=== PATIENT | male | born 1950 | race Caucasian/White ===

== ENCOUNTER 2017-05-08 21:32 | Emergency (ER) | payer BC ==
[2017-05-08 22:28] VITALS: BP 151/90
--- NOTE | 2017-05-08 22:53 | EDM.PDOC ---
ED HPI GENERAL MEDICAL PROBLEM - General Chief Complaint: Eye Problems Stated Complaint: POKED EYE WED AM Time Seen by Provider: 05/08/17 22:43 Source of Information: Reports: Patient History Limitations: Reports: No Limitations - History of Present Illness INITIAL COMMENTS - FREE TEXT/NARRATIVE: History of present illness: [66-year-old male presents with history of poking himself with a hair pick in the left eye yesterday. Continues to have irritation and some discharge. His vision is good though.] Review of systems: As per history of present illness and below otherwise all systems reviewed and negative. Past medical history: As per history of present illness and as reviewed below otherwise noncontributory. Surgical history: As per history of present illness and as reviewed below otherwise noncontributory. Social history: No reported history of drug or alcohol abuse. Family history: As per history of present illness and as reviewed below otherwise noncontributory. Physical exam: HEENT: Atraumatic, normocephalic, pupils reactive, negative for conjunctival pallor or scleral icterus, examination of the cornea under magnifying glass does reveal a corneal tear at the 12 o'clock position just at the junction of the limbus. This is about 2 cm across in his boxlike. The corneal membrane appears translucent and clean Lungs: Clear to auscultation Heart: S1S2, regular, Neuro: Awake, alert, oriented. Exam nonfocal. Diagnostics: [] Therapeutics: [] Impression: [Corneal abrasion] Plan: [Erythromycin ophthalmologic ointment is provided. If pain increases or vision diminishes he's to follow-up with optometry] Definitive disposition and diagnosis as appropriate pending reevaluation and review of above. - Related Data Allergies Allergy/AdvReac Type Severity Reaction Status Date / Time No Known Allergies Allergy Verified 05/08/17 22:26 Home Meds: Home Meds NK [No Known Home Meds] 05/08/17 [History] Past Medical History HEENT History: Reports: Cataract Cardiovascular History: Reports: None Respiratory History: Reports: None Gastrointestinal History: Reports: Cholelithiasis Neurological History: Reports: Concussion - Past Surgical History Cardiovascular Surgical History: Reports: None Respiratory Surgical History: Reports: None GI Surgical History: Reports: Cholecystectomy, Colonoscopy, Hernia, Inguinal Neurological Surgical History: Reports: C-Spine Social & Family History - Tobacco Use Smoking Status *Q: Never Smoker - Recreational Drug Use Recreational Drug Use: No ED ROS GENERAL - Review of Systems Review Of Systems: ROS reveals no pertinent complaints other than HPI. ED EXAM GENERAL W FULL EYE - Physical Exam Exam: See Below Course - Vital Signs Last Recorded V/S: Last Vital Signs Temp 35.8 C 05/08/17 22:27 Pulse 65 05/08/17 22:27 Resp 14 05/08/17 22:27 BP 151/90 H 05/08/17 22:27 Pulse Ox 95 05/08/17 22:27 Departure - Departure Time of Disposition: 22:52 Disposition: Home, Self-Care 01 Condition: Good Clinical Impression: Corneal abrasion Qualifiers: Encounter type: initial encounter Laterality: left Qualified Code(s): S05.02XA - Injury of conjunctiva and corneal abrasion without foreign body, left eye, initial encounter - Discharge Information Forms: ED Department Discharge Additional Instructions: If in the next 1-2 days your vision is diminishing or pain is increasing then you should follow-up with an eye doctor.
== END 2017-05-08 23:03 | disposition home or self-care (01) ==
LOC: JP.ED 21:32
DX: S05.02XA Injury of conjunctiva and corneal abrasion without foreign body, left eye, initial encounter (principal); Z90.49 Acquired absence of other specified parts of digestive tract; Z98.890 Other specified postprocedural states; W22.8XXA Striking against or struck by other objects, initial encounter
CPT/HCPCS: 99283